=== PATIENT | male | born 1970 | race Caucasian/White ===

== ENCOUNTER → 2017-04-15 | Outpatient (CLI) | payer MEDICARE ==
--- NOTE | 2017-04-15 17:25 | REP ---
LIMITED MRI RIGHT KNEE: Limited sequences right knee were performed with axial proton density fat sat and coronal proton density fat sat images obtained. Patient could not continue with the completion of the scan. There is extensive patient motion. There is limited visualization of the menisci, only seen on the single coronal sequence obtained. I do suspect that there is probably a tear of the posterior horn of the medial meniscus but again this could not be confirmed on any other sequence. The cruciate ligaments are grossly intact as are the collateral ligaments. Visualized extensor mechanism is grossly intact. There is diffuse subcutaneous soft tissue edema anteriorly. 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 There also appears to be mild to moderate diffuse chondromalacia of the medial joint compartment. I do not see evidence of bone marrow edema or occult fracture. There is a moderate joint effusion. Signed by Remington Frey MD 04/15/2017 05:28 P
== END ==
LOC: M PLARAD 14:51
PROVIDERS: ATTEND Physician Assistant Surgical
DX: M22.41 Chondromalacia patellae, right knee (principal); M25.461 Effusion, right knee; M25.561 Pain in right knee

== ENCOUNTER → 2018-05-01 | Outpatient (REF) | LOC: M LAB 08:28 ==